=== PATIENT | female | born 1995 | race Caucasian/White ===

== ENCOUNTER 2020-04-15 17:07 | Observation (INO) ==
[2020-04-15] MEDS ORDERED: Ondansetron 4 MG/2 ML VIAL IVP PRN (22:13)
[2020-04-15] MEDS ORDERED: 0.9 % Sodium Chloride 1,000 ML IVC SCH (22:15)
[2020-04-16] MEDS: Piperacillin/Tazobactam 3.375 GM in 0.9 % Sodium Chloride Mini Bag 100 ML IVPB SCH ×2 (00:55→09:14)
[2020-04-16] MEDS ORDERED: Naloxone 0.4 MG/ML INJ IVP PRN ×2 (09:03→14:27)
[2020-04-16] MEDS ORDERED: *HR* Meperidine 25 MG/ML SYRINGE IVP PRN ×2 (11:19→14:27)
[2020-04-16] MEDS ORDERED: *HR* OxyCODONE Immed Rel 5 MG TABLET PO PRN ×2 (11:19→14:27)
[2020-04-16] MEDS ORDERED: *HR* HYDROmorphone PF 0.5 MG/0.5 ML SYRINGE IVP PRN ×2 (11:19→14:27)
[2020-04-16] MEDS ORDERED: *HR* Promethazine 25 MG/ML VIAL IVP PRN ×2 (11:19→14:27)
[2020-04-16] MEDS ORDERED: Ondansetron 4 MG/2 ML VIAL IVP ONE ×2 (11:19→14:27)
[2020-04-16] MEDS ORDERED: *HR* FentaNYL (PF) 100 MCG/2 ML VIAL ONE (11:42)
[2020-04-16] MEDS ORDERED: *HR* Propofol 200 MG/20 ML VIAL IVP ONE (11:42)
[2020-04-16] MEDS ORDERED: *HR* Midazolam HCl 2 MG/2 ML VIAL ONE (11:42)
[2020-04-16] MEDS ORDERED: *HR* Rocuronium Bromide 50 MG/5 ML VIAL ONE (11:45)
[2020-04-16] MEDS ORDERED: Lidocaine -MPF 2% 2 ML VIAL ONE (11:45)
[2020-04-16] MEDS ORDERED: *HR* Succinylcholine 200 MG/10 ML VIAL IVP ONE (11:45)
[2020-04-16] MEDS ORDERED: Lidocaine HCL 4 ML Topical Solution (Laryng-O-Jet Kit Sterile Pak) TP ONE (11:46)
[2020-04-16] MEDS ORDERED: Scopolamine Patch 1.5 MG PATCH.TD72 ONE (11:48)
[2020-04-16] MEDS ORDERED: Acetaminophen IV 1,000 MG/100 ML INFUS..BTL ONE (11:48)
[2020-04-16] MEDS ORDERED: *HR* OxyCODONE/APAP 5/325 TABLET PO PRN ×2 (12:47→14:27)
[2020-04-16] MEDS ORDERED: Ondansetron 4 MG/2 ML VIAL ONE (12:56)
[2020-04-16] MEDS ORDERED: Dexamethasone 4 MG/ML VIAL ONE (12:56)
[2020-04-16] MEDS ORDERED: Ketorolac 30 MG/ML VIAL ONE (13:08)
[2020-04-16] MEDS ORDERED: *HR* HYDROMORPHONE 2 MG/ML VIAL ONE (13:15)
[2020-04-16] MEDS ORDERED: 0.9 % Sodium Chloride 1,000 ML IVC SCH (14:27)
[2020-04-16] MEDS ORDERED: Ondansetron 4 MG/2 ML VIAL IVP PRN (14:27)
[2020-04-16 14:49] VITALS: BP 119/71
[2020-04-16] MEDS ORDERED: Piperacillin/Tazobactam 3.375 GM in 0.9 % Sodium Chloride Mini Bag 100 ML IVPB SCH (16:00)
== END 2020-04-16 15:30 | disposition home or self-care (01) ==
LOC: 3ANU
PROVIDERS: ADMIT Surgery; ATTEND Surgery